=== PATIENT | male | born 1935 | race Two or more races ===

== ENCOUNTER → 2017-06-17 | Outpatient (CLI) | payer OTHER ==
[~2017-06-17] MED LIST: BISOPROLOL-HCTZ1 TA1; CLONAZEPAM1 MG; INTESTINEX1 CA1 PO; TOPROL XL50 M1
== END | disposition home or self-care (01) ==
LOC: RAD 08:01
DX: R13.10 Dysphagia, unspecified (principal); K30 Functional dyspepsia